=== PATIENT | female | born 1955 | race Caucasian/White ===

== ENCOUNTER 2023-07-16 12:37 | Outpatient (CLI) | payer MEDICARE, OTHER ==
[2023-07-16 17:55] LABS: BASOPHILS # (AUTO) 0.1 10^3/uL (0.0-0.1); BASOPHILS % (AUTO) 1.2 %; EOSINOPHILS # (AUTO) 0.2 10^3/uL (0.0-0.7); EOSINOPHILS % (AUTO) 2.5 %; HCT - HEMATOCRIT 41.9 % (37.0-47.0); HGB - HEMOGLOBIN 15.5 g/dL (12.0-16.0); LYMPHOCYTES # (AUTO) 1.2 10^3/uL (1.5-3.5); LYMPHOCYTES % (AUTO) 18.7 %; MEAN CORPUSCULAR HEMOGLOBIN 33.9 pg (27.0-31.0); MEAN CORPUSCULAR VOLUME 91.7 fL (81.0-99.0); MONOCYTES # (AUTO) 0.4 10^3/uL (0.0-1.0); MONOCYTES % (AUTO) 6.5 %; NEUTROPHILS # (AUTO) 4.5 10^3/uL (1.5-6.6); NEUTROPHILS % (AUTO) 70.8 %; PLT - PLATELET COUNT 428 10^3/uL (130-450); RED BLOOD COUNT 4.57 10^6/uL (4.20-5.40); RED CELL DISTRIBUTION WIDTH 12.4 % (12.0-15.0); WHITE BLOOD COUNT 6.4 x10^3/uL (4.8-10.8)
[2023-07-16 18:09] LABS: ALBUMIN 4.4 g/dL (3.2-5.5); ALBUMIN/GLOBULIN RATIO 1.5 (1.0-2.2); ALKALINE PHOSPHATASE 70 IU/L (42-121); ALT ALANINE AMINOTRANSFERASE 22 IU/L (10-60); AST ASPARTATE AMINOTRANSFERASE 17 IU/L (10-42); BILIRUBIN,TOTAL 0.8 mg/dL (0.2-1.0); BUN - BLOOD UREA NITROGEN 13 mg/dL (6-20); CALCIUM 9.6 mg/dL (8.5-10.3); CARBON DIOXIDE - CO2 29 mmol/L (21-32); CHLORIDE 104 mmol/L (101-111); CHOL/HDL RATIO 4.2 (<4.4); CHOLESTEROL 234 mg/dL; CREATININE 0.8 mg/dL (0.6-1.3); GFR - MDRD 72 (>89); GLUCOSE 97 mg/dL (74-104); HDL CHOLESTEROL 56 mg/dL; LDL CHOLESTEROL,CALCULATED 149 mg/dL; LDL/HDL RATIO 2.7 (<4.4); POTASSIUM 4.1 mmol/L (3.5-4.5); SODIUM 139 mmol/L (135-145); TOTAL PROTEIN 7.3 g/dL (6.4-8.9); TRIGLYCERIDES 143 mg/dL (48-352); VLDL CHOLESTEROL 29 mg/dL
[2023-07-16 18:23] LABS: THYROID STIMULATING HORMONE 0.91 uIU/mL (0.34-5.60)
[2023-07-16 20:00] LABS: ESTIMATED AVERAGE GLUCOSE 117 mg/dL (70-100); HEMOGLOBIN A1c% 5.7 % (4.27-6.07)
== END 2023-07-16 12:38 | disposition home or self-care (01) ==
LOC: LAB.N 12:37
PROVIDERS: ATTEND Family Medicine
DX: I10 Essential (primary) hypertension (principal); E66.9 Obesity, unspecified
CPT/HCPCS: 36415; 80053; 80061; 83036; 83721; 84443; 85025

== ENCOUNTER 2023-07-30 12:17 | Outpatient (CLI) | payer MEDICARE, OTHER ==
--- NOTE | 2023-08-04 11:58 | Mammography Report ---
BILATERAL DIGITAL SCREENING MAMMOGRAM 3D/2D: 07/30/2023 CLINICAL: Routine screening. Family history of breast cancer. No prior exams were available for comparison. Both breasts are almost entirely fatty (category a/<25% glandular tissue). There is a focal asymmetry in the right breast at 6 o'clock anterior depth. There also is a focal asymmetry in the right breast at 9 o'clock middle depth. There is a focal asymmetry in the left breast at 6 o'clock anterior depth. No other significant masses or calcifications are seen in either breast. IMPRESSION: INCOMPLETE: NEEDS ADDITIONAL IMAGING EVALUATION The focal asymmetry in the right breast at 6 o'clock anterior depth is indeterminate. Additional vie ws with possible ultrasound are recommended. The focal asymmetry in the right breast at 9 o'clock middle depth is indeterminate. Additional views with possible ultrasound are recommended. The focal asymmetry in the left breast at 6 o'clock anterior depth is indeterminate. Additional view s with possible ultrasound are recommended. Based on the Tyrer Cuzick model (a risk assessment model) the patient's lifetime risk is 10.5% and he r 10 year risk is 5.1%. According to the ACR, ACS, and NCCN guidelines, an annual breast MRI exam erick ng with mammogram is recommended if the patients lifetime risk is 20% or greater. This exam was interpreted at Station ID: [id number]. NOTE: For mammograms, a report in lay terms will be sent to the patient. Approximately 15% of breast malignancies will not be visualized mammographically. In the management of a palpable breast mass, a negative mammogram must not discourage biopsy of a clinically suspicious lesion. Electronically Signed By: Christi bonilla/zhang:08/03/2023 14:39:58 ACR BI-RADS Category 0: Incomplete 3340F PARENCHYMAL PATTERN: (F) - The breast(s) demonstrate(s) diffuse fatty replacement. BI-RADS CATEGORY: (0) - 0 Mammo and US [id number] Immediate follow-up LATERALITY: (B)
== END 2023-07-30 12:18 | disposition home or self-care (01) ==
LOC: DI.N 12:17
DX: Z12.31 Encounter for screening mammogram for malignant neoplasm of breast (principal); Z80.3 Family history of malignant neoplasm of breast; R92.8 Other abnormal and inconclusive findings on diagnostic imaging of breast

== ENCOUNTER 2023-08-20 08:37 | Outpatient (CLI) | payer MEDICARE, OTHER ==
--- NOTE | 2023-08-21 09:14 | Mammography Report ---
BILATERAL DIGITAL DIAGNOSTIC MAMMOGRAM 3D/2D WITH SPOT COMPRESSION: 08/20/2023 CLINICAL: Patient returns today to evaluate asymmetries in bilateral breasts. Comparison is made to exam dated: 07/30/2023 mammogram - [facility]. 06/12/2010. Both breasts are heterogeneously dense, which may obscure small masses (category c / 51-75% glandular tissue). There is a focal asymmetry in the right breast at 12 o'clock middle depth. This is seen in additiona l views. This was previously described at 9:00. There also is a stable benign focal asymmetry in the right breast at 6 o'clock anterior depth. This is seen in additional views. There is a stable benign focal asymmetry in the left breast at 6 o'clock anterior depth. This is see n in additional views. These findings are stable from 2010 mammogram, which is now available for review. No other significant masses or calcifications are seen in either breast. IMPRESSION: INCOMPLETE: NEEDS ADDITIONAL IMAGING EVALUATION The focal asymmetry in the right breast at 12 o'clock middle depth is indeterminate. An ultrasound i s recommended. Based on Tyrer-Cuzick model (a risk assessment model), the patient's lifetime risk is 22.8% and her 1 0 year risk is 11.5%. If a patient has an elevated risk, a more comprehensive evaluation should be co nsidered and/or a referral to a genetic counselor. The [place] [employer], [place] [employer], and NCCN Guidelines advise the consideration of Breast MRI as an adjunct to screening mammo graphy in patients whose "Lifetime risk to develop breast cancer" is 20% or higher. This exam was interpreted at Station ID: [id number]. NOTE: For mammograms, a report in lay terms will be sent to the patient. Approximately 15% of breast malignancies will not be visualized mammographically. In the management of a palpable breast mass, a negative mammogram must not discourage biopsy of a clinically suspicious lesion. Electronically Signed By: Yobani Klein M.D. lc/:08/20/2023 09:23:36 ACR BI-RADS Category 0: Incomplete 3340F PARENCHYMAL PATTERN: (D) - The breast(s) demonstrate(s) heterogeneously dense fibroglandular parluciano richardson. BI-RADS CATEGORY: (0) - 0 Ultrasound [id number] Immediate follow-up LATERALITY: (B)
--- NOTE | 2023-08-21 09:14 | Ultrasound Report ---
LIMITED ULTRASOUND OF RIGHT BREAST: 08/20/2023 CLINICAL: Patient returns today to evaluate a focal asymmetry in the right breast. Comparison is made to exams dated: 08/20/2023 mammogram, 07/30/2023 mammogram - [facility], 06/12/2010 mammogram, 06/12/2010 ultrasound, and 06/06/2010 mammogram - [facility]. Color flow and real-time ultrasound of the right breast 11 o'clock region were performed. Armendariz scale images of the real-time examination were reviewed. There is a 0.6 cm x 0.8 cm x 0.3 cm oval mass in the right breast at 11 o'clock middle depth. This c orrelates with mammography findings. IMPRESSION: PROBABLY BENIGN The 0.6 cm x 0.8 cm x 0.3 cm oval mass in the right breast is probably benign. Follow-up mammogram a nd ultrasound in 6 months is recommended. A larger mass was possibly seen at this location in 2009 m ammogram, though comparison difficult due to lack of prior tomography. A follow-up mammogram and an ultrasound in 6 months is recommended to demonstrate stability. This exam was interpreted at Station ID: [id number]. Electronically Signed By: Yobani Klein M.D. lc/:08/20/2023 10:09:28 Ultrasound BI-RADS: 3 Probably benign BI-RADS CATEGORY: (3) - 3 Mammo and US [id number] 6 month follow-up LATERALITY: (B)
== END 2023-08-20 08:38 | disposition home or self-care (01) ==
LOC: DI 08:37
PROVIDERS: ATTEND Family Medicine
DX: R92.8 Other abnormal and inconclusive findings on diagnostic imaging of breast (principal); R92.333 Mammographic heterogeneous density, bilateral breasts

== ENCOUNTER 2023-09-21 12:41 | Outpatient (CLI) | payer MEDICARE, OTHER ==
--- NOTE | 2023-09-21 16:08 | DEXA Report ---
PROCEDURE: Dexa Spine and/or Hip INDICATIONS: POST MENOPAUSAL TECHNIQUE: Dual energy x-ray absorptiometry (DXA) was performed on a [employer] System. Regions measur ed are the AP Spine, femoral neck, and if needed forearm. COMPARISON: None. FINDINGS: Lumbar Spine: Bone Mineral Density: 1.168 g/cm/cm,T score: -0.1. Left Femoral Neck: Bone Mineral Density: 0.903 g/cm/cm, T score: -1.0. Left Hip: Bone Mineral Density: 0.993 g/cm/cm,T score: -0.1. (T score greater or equal to -1.0: NORMAL) (T score from -1.1 to -2.4: OSTEOPENIA) (T score less than or equal to -2.5 to: OSTEOPOROSIS) Impression: By WHO criteria, this patient has normal bone density. Patients with diagnosis of osteoporosis or osteopenia should have regular bone mineral density assess ment. For those eligible for Medicare, routine testing is allowed once every 2 years. Testing frequ ency can be increased for patients who have rapidly progressing disease or for those who are receivin g medical therapy to restore bone mass. Reviewed by: Guzman Yang MD on 09/21/2023 4:07 PM PDT Approved by: Guzman Yang MD on 09/21/2023 4:07 PM PDT Station ID: [id number]
== END 2023-09-21 12:42 | disposition home or self-care (01) ==
LOC: DI 12:41
PROVIDERS: ATTEND Family Medicine
DX: Z78.0 Asymptomatic menopausal state (principal)

== ENCOUNTER 2024-02-24 07:42 | Outpatient (CLI) | payer MEDICARE, OTHER ==
--- NOTE | 2024-02-25 08:00 | Ultrasound Report ---
LIMITED ULTRASOUND OF RIGHT BREAST: 02/24/2024 CLINICAL: Patient returns today to evaluate a focal asymmetry in the right breast. Comparison is made to exams dated: 02/24/2024 mammogram, 08/20/2023 ultrasound, 08/20/2023 mammogram, mammogram - [facility], 06/12/2010 mammogram, and 06/12/2010 ultrasound - [facility]. Color flow and real-time ultrasound of the right breast 6 o'clock and 11 o'clock regions were perform ed. Armendariz scale images of the real-time examination were reviewed. There is a 0.7 cm x 0.3 cm x 0.6 cm oval mass with a circumscribed margin in the right breast at 11 o 'clock, 4 cm from the nipple. This oval mass is hypoechoic. This correlates with mammography findin gs described at 12 o'clock middle depth and stable since 08/20/2023. There is a 0.5 cm x 0.5 cm x 0.4 cm oval mass with a circumscribed margin in the right breast at 6 o' clock anterior depth. This correlates with mammography findings at 6 o'clock in the retroareolar reg ion, stable on mammogram since at least 08/20/2023. IMPRESSION: PROBABLY BENIGN 1) Right breast 0.7 cm oval circumscribed mass at 11 o'clock, 4 cm from the nipple, stable since at [place] August 2023. Finding is probably benign. Recommend follow-up mammogram and ultrasound in 6 mo nths to demonstrate 1 year stability. Patient will be due for bilateral mammogram at that time. 2) Right breast 0.5 cm oval circumscribed mass at 6 o'clock in the retroareolar region, stable since August 2023. Finding is probably benign. Recommend follow-up mammogram and ultrasound in 6 months to demonstrate 1 year stability. Patient will be due for bilateral mammogram at that time. Findings and recommendations were conveyed to the patient during today's evaluation. This exam was interpreted at Station ID: [id number]. Electronically Signed By: Karissa Harris M.D., Ph.D. eb/:02/24/2024 09:03:33 Ultrasound BI-RADS: 3 Probably benign BI-RADS CATEGORY: (3) - 3 Mammo and US [id number] 6 month follow-up LATERALITY: (B)
--- NOTE | 2024-02-25 08:00 | Mammography Report ---
UNILATERAL RIGHT DIGITAL DIAGNOSTIC MAMMOGRAM 3D/2D: 02/24/2024 CLINICAL: Patient returns for a 6 month follow up of the right breast. Comparison is made to exams dated: 08/20/2023 mammogram, 08/20/2023 ultrasound, and 07/30/2023 mammogra [facility]. The right breast is heterogeneously dense, which may obscure small masses (category c / 51-75% glandu lar tissue). There is an oval circumscribed mass measuring 7 mm at 12 o'clock middle depth, stable since at least 08/20/2023. There is an associated punctate calcification, stable. There is an oval circumscribed mass measuring 6 mm at 6 o'clock in the retroareolar region, stable si nce at least 08/20/2023. No other significant masses or calcifications are seen in the breast. IMPRESSION: INCOMPLETE: NEEDS ADDITIONAL IMAGING EVALUATION 1) Right breast 7 mm oval circumscribed mass at 12 o'clock middle depth, stable since August 2023. An ultrasound is recommended for further evaluation and is scheduled to immediately follow this exami nation. 2) Right breast 6 mm oval circumscribed mass at 6 o'clock in the retroareolar region, stable since 2023. An ultrasound is recommended for further evaluation and is scheduled to immediately fol low this examination. Based on Tyrer-Cuzick model (a risk assessment model), the patient's lifetime risk is 21.8% and her 1 0 year risk is 11.4%. If a patient has an elevated risk, a more comprehensive evaluation should be co nsidered and/or a referral to a genetic counselor. The [place], [employer], and NCCN Guidelines advise the consideration of Breast MRI as an adjunct to screening mammo graphy in patients whose "Lifetime risk to develop breast cancer" is 20% or higher. This exam was interpreted at Station ID: [id number]. NOTE: For mammograms, a report in lay terms will be sent to the patient. Approximately 15% of breast malignancies will not be visualized mammographically. In the management of a palpable breast mass, a negative mammogram must not discourage biopsy of a clinically suspicious lesion. Electronically Signed By: Karissa Harris M.D., Ph.D. eb/:02/24/2024 08:55:09 ACR BI-RADS Category 0: Incomplete 3340F PARENCHYMAL PATTERN: (D) - The breast(s) demonstrate(s) heterogeneously dense fibroglandular parenchy ma. BI-RADS CATEGORY: (0) - 0 Ultrasound [id number] Immediate follow-up LATERALITY: (B)
== END 2024-02-24 07:43 | disposition home or self-care (01) ==
LOC: DI 07:42
PROVIDERS: ATTEND Family Medicine
DX: N63.15 Unspecified lump in the right breast, overlapping quadrants (principal); N63.11 Unspecified lump in the right breast, upper outer quadrant; R92.331 Mammographic heterogeneous density, right breast